=== PATIENT | male | born 1980 | race Caucasian/White ===

== ENCOUNTER 2020-11-08 05:11 | Emergency (ER) | payer SELFPAY ==
[~2020-11-08] VITALS: Ht 182.9 cm; Wt 106.8 kg
[~2020-11-08 05:11] MED LIST: FAMO-128 PO
[2020-11-08] MEDS ORDERED: acetaminophen 325mg tablet PO ONE (05:25)
[2020-11-08] MEDS ORDERED: normal saline 1000ml 1,000 ML IV ONE (05:25)
[2020-11-08 06:06] LABS: ALBUMIN 4.1 G/DL (3.4-5.0); ANION GAP 12 (8-16); BLOOD UREA NITROGEN 10 MG/DL (7-18); BUN/CREATININE RATIO 8.8 (5.4-32.0); CALCIUM 8.8 MG/DL (8.5-10.1); CHLORIDE 99 MMOL/L (99-107); CREATININE 1.14 MG/DL (0.60-1.10); GLUCOSE 120 MG/DL (70-104); POTASSIUM 3.5 MMOL/L (3.5-5.1); SODIUM 135 MMOL/L (135-145); TOTAL CARBON DIOXIDE 24.2 MMOL/L (24-32); eGFR 70 ML/MIN
[2020-11-08 06:09] LABS: BASOPHILS # (AUTO) 0.1 X10'3 (0-0.2); BASOPHILS % (AUTO) 0.3 % (0-1); EOSINOPHILS % (AUTO) 0.1 % (0-6); HEMATOCRIT 50.2 % (42.0-52.0); HEMOGLOBIN 17.6 g/dl (14.0-17.9); LYMPHOCYTES # (AUTO) 0.9 X10'3 (1.1-4.8); LYMPHOCYTES % (AUTO) 3.8 % (21-51); MEAN CORPUSCULAR VOLUME 97.1 FL (78-98); MEAN PLATELET VOLUME 8.4 FL (7.4-10.4); MONOCYTES # (AUTO) 1.4 X10'3 (0-0.9); NEUTROPHILS # (AUTO) 20.2 X10'3 (1.8-7.7); NEUTROPHILS % (AUTO) 89.8 % (42-75); PLATELET COUNT 232 X10'3 (140-440); RED BLOOD COUNT 5.17 X10'6 (4.70-6.10); RED CELL DISTRIBUTION WIDTH 12.4 % (11.5-14.5); WHITE BLOOD COUNT 22.5 X10'3 (4.5-11.0)
[2020-11-08 06:42] VITALS: BP 107/55
== END 2020-11-08 07:23 | disposition home or self-care (01) ==
LOC: ER 05:13
DX: D72.829 Elevated white blood cell count, unspecified (principal); R50.9 Fever, unspecified; K21.9 Gastro-esophageal reflux disease without esophagitis
CPT/HCPCS: 36415; 71045; 80048; 83605; 85025; 87040; 87635; 96360; 99284; C9803; J7030

== ENCOUNTER 2021-01-11 04:49 | Emergency (ER) | payer OTHER ==
[2021-01-11 05:33] VITALS: BP 128/72
== END 2021-01-11 05:36 | disposition home or self-care (01) ==
LOC: ER 04:49
DX: R07.9 Chest pain, unspecified (principal)
CPT/HCPCS: 71046; 93005; 99283